=== PATIENT | female | born 1945 | race African-American/Black ===

== ENCOUNTER 2016-07-27 08:50 | Inpatient (IN) | payer MEDICARE, BC ==
[~2016-07-27] VITALS: Ht 160 cm; Wt 97.5 kg
[2016-07-27] MEDS ORDERED: ATEN50TA PO (12:56)
[2016-07-27] MEDS ORDERED: DORZ2SOL EACH EYE (12:56)
[2016-07-27] MEDS ORDERED: SIMV20TA PO (12:56)
[2016-07-27] MEDS ORDERED: LOSA100T PO (12:56)
[2016-07-27] MEDS ORDERED: AMLO10TA2 PO (12:56)
[2016-07-27] MEDS ORDERED: WARF-23 PO (12:56)
[2016-07-27] MEDS ORDERED: WARF-22 PO (12:56)
[2016-07-27] MEDS ORDERED: BRIM0.155 EACH EYE (13:00)
[2016-07-27] MEDS ORDERED: LATA0.002 EACH EYE (13:01)
[2016-07-28] MEDS ORDERED: PROPOFOL 200 MG/20 ML AMP IV ONE (08:40)
[2016-07-28] MEDS ORDERED: ePHEDrine/NS 25 MG/5 ML SYR IV ONE (08:41)
[2016-07-28] MEDS ORDERED: ONDANSETRON HCL 4 MG/2 ML VIAL IV PUSH ONE (08:41)
[2016-07-28] MEDS: CHLORHEXIDINE GLUCONATE 4% SOLN 120 ML BTL TOP SCH (10:15)
[2016-07-28] MEDS ORDERED: ceFAZolin 2 GM PREMIX 50 ML IV SCH (10:15)
[2016-07-28] MEDS ORDERED: LACTATED RINGER'S 1000 ML IV SCH (10:30)
[2016-07-28] MEDS ORDERED: SODIUM CHLORID 0.9% 500 ML IV SCH (10:30)
[2016-07-28] MEDS ORDERED: METOPROLOL TARTRATE 25 MG TAB PO PRN (10:30)
[2016-07-28] MEDS ORDERED: INSULIN HUMAN REGULAR 1,000 UNITS/10 ML VIAL SQ PRN (10:30)
[2016-07-28 10:45] VITALS: BP 170/73; PULSE 50; RESP 18; TEMP 98; O2SAT 96
[2016-07-28] MEDS: VANCOMYCIN 1000 MG/NS 250 ML (for <70 kg) IV SCH ×4 (11:24→11:30)
[2016-07-28 11:37] LABS: PROTHROMBIN TIME - PATIENT 10.7 SEC (9.8-11.6)
[2016-07-28] MEDS ORDERED: fentaNYL CITRATE 250 MCG/5 ML AMP ONE (11:51)
[2016-07-28] MEDS ORDERED: ACETAMINOPHEN 1000 MG/100 ML VIAL IV ONE (11:51)
[2016-07-28] MEDS ORDERED: MIDAZOLAM HCL 2 MG/2 ML VIAL ONE (11:51)
[2016-07-28] MEDS ORDERED: FAMOTIDINE 20 MG/2 ML VIAL ONE (11:51)
[2016-07-28] MEDS ORDERED: APREPITANT 40 MG CAP ONE (11:52)
[2016-07-28] MEDS ORDERED: DEXAMETHASONE SOD PHOS 4 MG/ML VIAL ONE (11:52)
[2016-07-28] MEDS ORDERED: METOCLOPRAMIDE HCL 10 MG/2 ML VIAL ONE (11:52)
[2016-07-28] MEDS ORDERED: GENTAMICIN SULFATE 80 MG/2 ML VIAL ONE (12:59)
--- NOTE | 2016-07-28 14:39 | HHI.PR ---
Immediate Post Op Note Procedure Date: Jul 28, 2016 Pre Op Diagnosis: R Hip OA Post Op Diagnosis: Same Surgeon: Carl Clayton MD Clinical Program Director(s): Izabel العلي PA-C Procedure: R THR Complications: None Estimated blood loss: 400cc Anesthesia: General Drains: None Patient to: PACU Patient Condition: Good Implant/Devices: SEE IMPLANT LOG (if applicable) Date/Time of Procedure: SEE SURGICAL CARE RECORD Carl Clayton MD Jul 28, 2016 14:39
[2016-07-28] MEDS ORDERED: BEDSIDE COMMODE1 MI1 (14:42)
[2016-07-28] MEDS ORDERED: WALKER WHEELS/F1 MIS (14:42)
--- NOTE | 2016-07-28 14:43 | HHI.FF ---
Face to Face Verification Diagnosis: (1) Osteoarthritis of right hip Physical Therapy Gait training Hip: Total hip, Protocol: Right, Posterior hip precautions Canvas Knee Splint: Other (at night while sleeping for 4 weeks) Right LE Weight Bearing: WB as tolerated Left LE Weight Bearing: WB as tolerated Nursing RN Days per Week: 3 x Week(s): 2 Nursing: Dressing changes (clean incision with alcohol and apply dry sterile dressing daily ) Additional Instructions Pt/INR q Monday and , call/text results to Izabel DUARTE [phone] Goal INR 1.8-2 I have seen patient Slime Rowe on 07/28/16. My clinical findings support the need for the requested home health care services because: Deconditioned w/ increased weakness I certify that my clinical findings support that this patient is homebound because: Post-op weakness Carl Clayton MD Jul 28, 2016 14:43
[2016-07-28] MEDS: SODIUM CHLORIDE 0.9% FLUSH 5 ML FLUSH IVF SCH ×2 (14:45→21:00)
[2016-07-28] MEDS ORDERED: ZOLPIDEM TARTRATE 5 MG TAB PO PRN (14:45)
[2016-07-28] MEDS ORDERED: ONDANSETRON HCL 4 MG/2 ML VIAL IVP PRN (14:45)
[2016-07-28] MEDS ORDERED: SODIUM CHLORIDE 0.9% FLUSH 5 ML FLUSH IVF PRN (14:45)
[2016-07-28] MEDS ORDERED: Post-op Orders (for Pharmacy) MISC XX ONE (14:45)
[2016-07-28] MEDS ORDERED: ALUMINUM/MAGNESIUM/SIMETH 30 ML CUP PO PRN (14:45)
[2016-07-28] MEDS ORDERED: GLYCOPYRROLATE 0.2 MG/ML VIAL ONE (14:46)
[2016-07-28] MEDS ORDERED: *morphine SULFATE 8 MG/ML PERIprocedure ONLY ONE ×3 (15:06→15:27)
[2016-07-28] MEDS ORDERED: LACTATED RINGER'S 1000 ML INJ 1,000 ML IV SCH (16:00)
--- NOTE | 2016-07-28 16:09 | RADRPT ---
EXAM DATE/TIME: 07/28/2016 15:25 [place] COMPARISON: No previous studies available for comparison. INDICATIONS : Post operation right hip replacement. MEDICAL HISTORY : None. SURGICAL HISTORY : Prior left hip replacement. ENCOUNTER: Initial ACUITY: 1 day PAIN SCORE: Non-responsive. LOCATION: right hip FINDINGS: A lateral view of the right hip with AP pelvis was obtained. There are postoperative changes of previ ous bilateral hip replacement. Spinal fixation noted in the lumbar spine and across the lumbosacral j unction. Bones are osteopenic. No acute fracture. CONCLUSION: Postoperative changes as above with bilateral hip replacement and spine fixation. Right hip replaceme nt is immediately postoperative with air in the soft tissues. Normal alignment. No complications iden tified. Eddie Leone MD on July 28, 2016 at 16:05 Board Certified Radiologist. This report was verified electronically.
[2016-07-28] MEDS ORDERED: PILL SPLITTER OTHER PRN (16:15)
[2016-07-28] MEDS ORDERED: MORPHINE SULFATE 8 MG/ML INJ IM PRN (16:45)
[2016-07-28] MEDS: BRIMONIDINE TARTRATE 0.15% OPHT SOLN 5 ML BTL EACH EYE SCH (18:00)
[2016-07-28] MEDS: ACETAMINOPHEN/HYDROcodone 325 MG/7.5 MG TAB PO PRN ×2 (18:39→23:47)
[2016-07-28 20:15] VITALS: BP 95/51; PULSE 50; RESP 17; TEMP 96.3; O2SAT 100
--- NOTE | 2016-07-28 20:50 | PD.CONS ---
HPI Service [facility] Hospitalists Consult Requested By Dr Clayton Reason for Consult Medical Management Primary Care Physician Terrance Forman MD Diagnoses: History of Present Illness This is a 71-year-old female with past medical history significant for hypertension, glaucoma, hyperlipidemia, and ablation on chronic ventilation with Coumadin and also arthritis of the right hip was sent to [facility] for elective arthroplasty of the hip. The patient states that she has been having pain in the right hip and has seen Dr. Powers as an outpatient. The patient states that despite trying multiple conservative measures including manipulation, physical therapy and steroid injections the pain got so bad that she was unable to ambulate. The patient is status post right total hip arthroplasty. The patient currently denies chest pain, stress of breath, the patient, headache, dizziness, abdominal pain, diarrhea, nausea vomiting. The state that she had some right hip pain that was moderate to severe, however had some pain medications and the pain is now 2/10. Review of Systems Except as stated in HPI: all other systems reviewed are Neg Past Family Social History Allergies: Coded Allergies: Percocet (Verified Allergy, Severe, HIVES, 07/28/16) Past Medical History 1. Hypertension. 2. Glaucoma. 3. Hyperlipidemia. 4. Atrial fibrillation on chronic anticoagulation with Coumadin Past Surgical History 1. Right knee replacement 2. 2. Status post left hip replacement. 3. Hysterectomy. 4. Spine surgery. Reported Medications 1. Brimonidine ophthalmic dropsone drop to each eye 3 times a day. 2. Losartan 100 mg by mouth daily 3. Warfarin 15 mg by mouth daily. 4. Atenolol 75 mg by mouth daily. 5. Dorzolamide 1 drop to each eye twice a day 6. Amlodipine 10 mg by mouth daily. 7. Simvastatin 20 mg by mouth daily. 8. Latanoprost ophthalmic drops 0.005%one drop to each eye at at bedtime. Active Ordered Medications Current Medications Medications (Trade) Dose Ordered Sig/Gemma Route Start Time Stop Time Status Last Admin (Hibiclens 4% Top Soln) 1 applic ONCE TOP 07/28/16 10:15 07/31/16 10:14 (Norvasc) 10 mg DAILY PO 07/29/16 09:00 (Tenormin) 75 mg DAILY PO 07/29/16 09:00 (Alphagan P 0.15% Opth Soln) 1 drop TID EACH EYE 07/28/16 18:00 (Trusopt 2% Opth Soln) 1 drop BID EACH EYE 07/28/16 21:00 (Xalatan 0.005% Opth Soln) 1 drop HS EACH EYE 07/28/16 21:00 (Cozaar) 100 mg DAILY PO 07/29/16 09:00 Pravastatin Sodium 40 mg 40 mg DAILY PO 07/29/16 09:00 (Lr 1000 ml Inj) 1,000 ml @ 80 mls/hr [id number] IV 07/28/16 16:00 (NS Flush) 2 ml UNSCH PRN IVF 07/28/16 14:45 IV Flush 2 ml 2 ml BID IVF 07/28/16 14:45 (Ancef Inj/NS Inj) 100 ml @ 200 mls/hr Q6H IV 07/28/16 20:00 07/29/16 08:29 (Coumadin) Follow Sliding Scale... DAILY@1600 PO 07/29/16 16:00 (Coumadin Booklet) 1 ONCE ONCE XX 07/29/16 16:00 07/29/16 16:01 ([place] 7.5-325 Mg) 1 tab Q4H PRN PO 07/28/16 14:45 ([place] 7.5-325 Mg) 2 tab Q4H PRN PO 07/28/16 14:45 07/28/16 18:39 (Zofran Inj) 4 mg Q6H PRN IVP 07/28/16 14:45 (Colace) 100 mg BID PO 07/29/16 21:00 (Mag-Al Plus Susp Liq) 30 ml Q6H PRN PO 07/28/16 14:45 (Ambien) 5 mg HS PRN PO 07/28/16 14:45 (Pill Splitter) 1 ea UNSCH PRN OTHER 07/28/16 16:15 (Morphine Inj) 5 mg Q3H PRN IM 07/28/16 16:45 Family History Patient's mother of breast cancer. Youngest daughter from complications due to type 1 diabetes mellitus. Social History She denies smoking. Denies drinking alcohol. The patient is and lives with her . The patient has 2 children that live in [place]. Physical Exam Vital Signs Vital Signs Date Time Temp Pulse Resp B/P Pulse Ox O2 Delivery O2 Flow Rate FiO2 07/28/16 17:33 97.0 50 15 121/58 99 Nasal Cannula 3 07/28/16 17:00 50 17 108/58 99 Nasal Cannula 3 07/28/16 16:30 51 15 119/60 99 Nasal Cannula 3 07/28/16 16:00 52 15 119/57 99 Nasal Cannula 3 07/28/16 15:30 50 16 120/59 97 Nasal Cannula 3 07/28/16 15:15 50 17 125/58 98 Nasal Cannula 3 07/28/16 15:00 49 14 118/82 98 Nasal Cannula 3 07/28/16 14:45 44 14 116/58 98 Nasal Cannula 3 07/28/16 14:34 97.5 57 14 123/60 98 Nasal Cannula 3 07/28/16 10:45 98.0 50 18 170/73 96 Physical Exam GENERAL: This is a well-nourished, well-developed patient, in no apparent distress. SKIN: No rashes, ecchymoses or lesions. Cool and dry. HEAD: Atraumatic. Normocephalic. No temporal or scalp tenderness. EYES: Pupils equal round and reactive. Extraocular motions intact. No scleral icterus. No injection or drainage. ENT: Nose without bleeding, purulent drainage or septal hematoma. Throat without erythema, tonsillar hypertrophy or exudate. Uvula midline. Airway patent. NECK: Trachea midline. No JVD or lymphadenopathy. Supple, nontender, no meningeal signs. CARDIOVASCULAR: Regular rate and rhythm without murmurs, gallops, or rubs. RESPIRATORY: Clear to auscultation. Breath sounds equal bilaterally. No wheezes , rales, or rhonchi. GASTROINTESTINAL: Abdomen soft, non-tender, nondistended. No hepato-splenomegaly , or palpable masses. No guarding. MUSCULOSKELETAL: Extremities without clubbing, cyanosis, or edema. There is tenderness to palpation of the right hip, no effusion or edema noted in any joints. . No calf tenderness. Negative Homans sign bilaterally. NEUROLOGICAL: Awake and alert. Cranial nerves II through XII intact. Motor and sensory grossly within normal limits. Five out of 5 muscle strength in all muscle groups. Normal speech. Laboratory Laboratory Tests Test 07/28/16 07/28/16 10:55 11:00 Blood Type B POSITIVE Antibody Screen NEGATIVE Crossmatch Leukocyte-Reduced Red Blood Cells Blood Bank Comment Prothrombin Time 10.7 Prothromb Time International 1.0 Ratio Imaging Last Impressions Hip and Pelvis X-Ray 07/28/16 0000 Signed Impressions: Service Date/Time: July 15:25 - CONCLUSION: Postoperative changes as above with bilateral hip replacement and spine fixation. Right hip replacement is immediately postoperative with air in the soft tissues. Normal alignment. No complications identified. Eddie Leone MD Assessment and Plan Problem List: (1) Osteoarthritis of right hip ICD Code: M16.11 Status: Acute Plan: Patient is status post right hip arthroplasty. Management as per orthopedic surgery Continue pain control with oral [place] and IM morphine. (2) Hypertension ICD Code: I10 Status: Chronic Plan: Blood pressure seems stable. Continue home antihypertensive medications. Patient currently on valsartan, atenolol, amlodipine. Continue to monitor vital signs (3) Hyperlipidemia ICD Code: E78.5 Status: Chronic Plan: Continue statin. (4) Glaucoma ICD Code: H40.9 Status: Chronic Plan: Seems to be stable. The patient denies any eye pain. Continue brimonidine and latanoprost ophthalmic drops. (5) Atrial fibrillation ICD Code: I48.91 Status: Chronic Plan: Seems to be rate controlled. Place on telemetry. Assessment and Plan DVT prophylaxis: SCDs, no chemoprophylaxis articulation due to recent surgery. Code Status Full code Discussed Condition With Patient and patient's . Problem Qualifiers (1) Osteoarthritis of right hip: Qualified Code: M16.11 - Primary osteoarthritis of right hip (2) Hypertension: Qualified Code: I10 - Essential hypertension (3) Glaucoma: Qualified Code: H40.9 - Glaucoma of both eyes, unspecified glaucoma (4) Atrial fibrillation: Qualified Code: I48.91 - Atrial fibrillation, unspecified type Gareth Maguire MD Jul 28, 2016 20:49
[2016-07-28] MEDS: DORZOLAMIDE 2% OPTH SOLN 200 DROP/10 ML BTLO EACH EYE SCH (20:56)
[2016-07-28] MEDS: LATANOPROST 0.005% OPHT SOLN 2.5 ML BTL EACH EYE SCH (20:56)
[2016-07-28 23:45] VITALS: BP 121/59; PULSE 50; RESP 18; TEMP 96; O2SAT 96
[2016-07-29] VITALS (9 sets, daily range): BP systolic 87–120; BP diastolic 48–57; PULSE 51–66; RESP 16–19; TEMP 95.8–96.8; O2SAT 92–97
[2016-07-29] MEDS: ACETAMINOPHEN/HYDROcodone 325 MG/7.5 MG TAB PO PRN ×3 (05:26→21:21)
[2016-07-29 05:55] LABS: AUTOMATED NEUTROPHIL # 9.7 TH/MM3 (1.8-7.7); BASOPHIL % 0.2 % (0.0-2.0); HEMATOCRIT 31.7 % (35.0-46.0); HEMO FLAGS DIFF FINAL; LYMPH % 7.7 % (9.0-44.0); LYMPHOCYTE # 0.9 TH/MM3 (1.0-4.8); MEAN CELL VOLUME 98.5 FL (80.0-100.0); MEAN CORPUSCULAR HEMOGLOBIN 32.9 PG (27.0-34.0); MEAN CORPUSCULAR HGB CONC 33.4 % (32.0-36.0); MONO % 8.6 % (0.0-8.0); NEUT % 83.5 % (16.0-70.0); PLATELET COUNT 155 TH/MM3 (150-450); RED BLOOD COUNT 3.22 MIL/MM3 (4.00-5.30); RED CELL DISTRIBUTION WIDTH 14.8 % (11.6-17.2); WHITE BLOOD COUNT 11.7 TH/MM3 (4.0-11.0)
[2016-07-29 06:08] LABS: INTERNATIONAL NORMALIZED RATIO 0.9 RATIO; PROTHROMBIN TIME - PATIENT 10.4 SEC (9.8-11.6)
[2016-07-29 06:13] LABS: ANION GAP 9 MEQ/L (5-15); BICARBONATE 24.6 MEQ/L (21.0-32.0); BLOOD UREA NITROGEN 26 MG/DL (7-18); CHLORIDE 104 MEQ/L (98-107); MAGNESIUM 2.1 MG/DL (1.5-2.5); POTASSIUM 4.8 MEQ/L (3.5-5.1); SODIUM (NA) 138 MEQ/L (136-145)
[2016-07-29 06:19] LABS: ALKALINE PHOSPHATASE 165 U/L (45-117); ALT (GPT) 1172 U/L (10-53); AST (GOT) 1353 U/L (15-37)
--- NOTE | 2016-07-29 06:26 | PD.ORT.PN ---
Subjective Subjective Remarks POD#1 R THR C/O post op pain No sob,no chest pain Explained to patient and operative findings Objective Vitals Vital Signs Date Time Temp Pulse Resp B/P Pulse Ox O2 Delivery O2 Flow Rate FiO2 07/29/16 04:00 96.0 57 17 109/54 97 07/28/16 23:45 96.0 50 18 121/59 96 07/28/16 20:15 96.3 50 17 95/51 100 07/28/16 20:00 Room Air 07/28/16 17:33 97.0 50 15 121/58 99 Nasal Cannula 3 07/28/16 17:00 50 17 108/58 99 Nasal Cannula 3 07/28/16 16:30 51 15 119/60 99 Nasal Cannula 3 07/28/16 16:00 52 15 119/57 99 Nasal Cannula 3 07/28/16 15:30 50 16 120/59 97 Nasal Cannula 3 07/28/16 15:15 50 17 125/58 98 Nasal Cannula 3 07/28/16 15:00 49 14 118/82 98 Nasal Cannula 3 07/28/16 14:45 44 14 116/58 98 Nasal Cannula 3 07/28/16 14:34 97.5 57 14 123/60 98 Nasal Cannula 3 07/28/16 10:45 98.0 50 18 170/73 96 I/O 07/28/16 07/28/16 07/28/16 07/29/16 07/29/16 07/29/16 07:00 15:00 23:00 07:00 15:00 23:00 Intake Total 900 ml 570 ml Output Total 400 ml 0 ml Balance 500 ml 570 ml Intake Oral 120 ml IV Total 450 ml Other 900 ml Output Urine Total 0 ml Estimated Blood Loss 400 ml # Voids 0 # Bowel Movements 0 Result Diagram: 07/29/16 0526 Other Results Laboratory Tests Test 07/28/16 07/29/16 11:00 05:26 Prothrombin Time 10.7 SEC 10.4 SEC (9.8-11.6) (9.8-11.6) Prothromb Time International 1.0 RATIO 0.9 RATIO Ratio Objective Remarks N/V intact Neg kenzie's;no calf tenderness No LLD Assessment & Plan Assessment and Plan Ortho stable PT/Rehab Coumadin for DVT prophylaxsis and A Fib D/C home tomorrow;[facility] Nursing,PT Carl Clayton MD Jul 29, 2016 06:26
[2016-07-29] MEDS: SODIUM CHLORIDE 0.9% FLUSH 5 ML FLUSH IVF SCH ×2 (08:14→21:21)
[2016-07-29] MEDS ORDERED: ATENOLOL 25 MG TAB PO SCH (09:00)
[2016-07-29] MEDS ORDERED: PRAVASTATIN SOD 40 MG TAB PO SCH ×2 (09:00→21:00)
[2016-07-29] MEDS ORDERED: LOSARTAN 50 MG TAB PO SCH (09:00)
[2016-07-29] MEDS: DORZOLAMIDE 2% OPTH SOLN 200 DROP/10 ML BTLO EACH EYE SCH ×2 (10:09→21:22)
[2016-07-29] MEDS: BRIMONIDINE TARTRATE 0.15% OPHT SOLN 5 ML BTL EACH EYE SCH ×3 (10:09→18:08)
[2016-07-29] MEDS: CHLORHEXIDINE GLUCONATE 4% SOLN 120 ML BTL TOP SCH (10:15)
--- NOTE | 2016-07-29 12:26 | HHI.PR ---
Subjective Remarks Liver function tests seem to be elevated. Patient denies abdominal pain, nausea, vomiting. Patient is a febrile Creatinine seems to be evaluated as well. Denies chest pain or shortness of breath Pain is controlled Patient states could not urinate last night so a straight catheter was placed Objective Vitals Vital Signs Date Time Temp Pulse Resp B/P Pulse Ox O2 Delivery O2 Flow Rate FiO2 07/29/16 08:50 92 Nasal Cannula 4.00 07/29/16 08:00 96.4 62 19 120/57 92 07/29/16 07:20 Nasal Cannula 07/29/16 04:00 96.0 57 17 109/54 97 07/28/16 23:45 96.0 50 18 121/59 96 07/28/16 20:15 96.3 50 17 95/51 100 07/28/16 20:00 Room Air 07/28/16 17:33 97.0 50 15 121/58 99 Nasal Cannula 3 07/28/16 17:00 50 17 108/58 99 Nasal Cannula 3 07/28/16 16:30 51 15 119/60 99 Nasal Cannula 3 07/28/16 16:00 52 15 119/57 99 Nasal Cannula 3 07/28/16 15:30 50 16 120/59 97 Nasal Cannula 3 07/28/16 15:15 50 17 125/58 98 Nasal Cannula 3 07/28/16 15:00 49 14 118/82 98 Nasal Cannula 3 07/28/16 14:45 44 14 116/58 98 Nasal Cannula 3 07/28/16 14:34 97.5 57 14 123/60 98 Nasal Cannula 3 I/O 07/28/16 07/28/16 07/28/16 07/29/16 07/29/16 07/29/16 07:00 15:00 23:00 07:00 15:00 23:00 Intake Total 900 ml 1003 ml 754 ml Output Total 400 ml 0 ml 700 ml Balance 500 ml 1003 ml 54 ml Intake Oral 120 ml 240 ml IV Total 883 ml 514 ml Other 900 ml Output Urine Total 0 ml 700 ml Estimated Blood Loss 400 ml # Voids 0 # Bowel Movements 0 0 Result Diagram: 07/29/16 0526 07/29/16 0526 Imaging Last Impressions Hip and Pelvis X-Ray 07/28/16 0000 Signed Impressions: Service Date/Time: July 15:25 - CONCLUSION: Postoperative changes as above with bilateral hip replacement and spine fixation. Right hip replacement is immediately postoperative with air in the soft tissues. Normal alignment. No complications identified. Eddie Leone MD Objective Remarks GENERAL: This is a well-nourished, well-developed patient, in no apparent distress. SKIN: No rashes, ecchymoses or lesions. Cool and dry. HEAD: Atraumatic. Normocephalic. No temporal or scalp tenderness. EYES: Pupils equal round and reactive. Extraocular motions intact. No scleral icterus. No injection or drainage. ENT: Nose without bleeding, purulent drainage or septal hematoma. Throat without erythema, tonsillar hypertrophy or exudate. Uvula midline. Airway patent. NECK: Trachea midline. No JVD or lymphadenopathy. Supple, nontender, no meningeal signs. CARDIOVASCULAR: Regular rate and rhythm without murmurs, gallops, or rubs. RESPIRATORY: Clear to auscultation. Breath sounds equal bilaterally. No wheezes , rales, or rhonchi. GASTROINTESTINAL: Abdomen soft, non-tender, nondistended. No hepato-splenomegaly , or palpable masses. No guarding. MUSCULOSKELETAL: Extremities without clubbing, cyanosis, or edema. There is tenderness to palpation of the right hip, no effusion or edema noted in any joints. Dressing looks C/D/I . No calf tenderness. Negative Homans sign bilaterally. NEUROLOGICAL: Awake and alert. Cranial nerves II through XII intact. Motor and sensory grossly within normal limits. Five out of 5 muscle strength in all muscle groups. Normal speech. Procedures sp Right hip arthroplasty Medications and IVs Current Medications Medications (Trade) Dose Ordered Sig/Gemma Route Start Time Stop Time Status Last Admin (Hibiclens 4% Top Soln) 1 applic ONCE TOP 07/28/16 10:15 07/31/16 10:14 (Norvasc) 10 mg DAILY PO 07/29/16 09:00 (Tenormin) 75 mg DAILY PO 07/29/16 09:00 07/29/16 08:14 (Alphagan P 0.15% Opth Soln) 1 drop TID EACH EYE 07/28/16 18:00 07/29/16 13:02 (Trusopt 2% Opth Soln) 1 drop BID EACH EYE 07/28/16 21:00 07/29/16 10:09 (Xalatan 0.005% Opth Soln) 1 drop HS EACH EYE 07/28/16 21:00 (Cozaar) 100 mg DAILY PO 07/29/16 09:00 07/29/16 08:15 Pravastatin Sodium 40 mg 40 mg DAILY PO 07/29/16 09:00 (Lr 1000 ml Inj) 1,000 ml @ 80 mls/hr [id number] IV 07/28/16 16:00 07/29/16 03:37 (NS Flush) 2 ml UNSCH PRN IVF 07/28/16 14:45 (NS Flush) 2 ml BID IVF 07/28/16 14:45 07/28/16 14:45 (Coumadin) Follow Sliding Scale... DAILY@14 PO 07/29/16 14:00 (Coumadin Booklet) 1 ONCE ONCE XX 07/29/16 16:00 07/29/16 16:01 ([place] 7.5-325 Mg) 1 tab Q4H PRN PO 07/28/16 14:45 ([place] 7.5-325 Mg) 2 tab Q4H PRN PO 07/28/16 14:45 07/29/16 10:09 (Zofran Inj) 4 mg Q6H PRN IVP 07/28/16 14:45 (Colace) 100 mg BID PO 07/29/16 21:00 (Mag-Al Plus Susp Liq) 30 ml Q6H PRN PO 07/28/16 14:45 (Ambien) 5 mg HS PRN PO 07/28/16 14:45 (Pill Splitter) 1 ea UNSCH PRN OTHER 07/28/16 16:15 (Morphine Inj) 5 mg Q3H PRN IM 07/28/16 16:45 (Milk Of Magnesia Liq) 30 ml BID PO 07/29/16 10:30 07/29/16 13:02 Sennosides 17.2 mg 17.2 mg HS PO 07/29/16 21:00 (NS 1000 ml Inj) 1,000 ml @ 100 mls/hr Q10H IV 07/29/16 12:45 Urinary Catheter: No A/P Problem List: (1) Osteoarthritis of right hip ICD Code: M16.11 Status: Acute Plan: Patient is status post right hip arthroplasty. Management as per orthopedic surgery Continue pain control with oral [place] and IM morphine. (2) Hypertension ICD Code: I10 Status: Chronic Plan: Hold bp medications due to hypotension last night and today. Continue to monitor vital signs. (3) Hyperlipidemia ICD Code: E78.5 Status: Chronic Plan: Continue statin. (4) Glaucoma ICD Code: H40.9 Status: Chronic Plan: Seems to be stable. The patient denies any eye pain. Continue brimonidine and latanoprost ophthalmic drops. (5) Atrial fibrillation ICD Code: I48.91 Status: Chronic Plan: Seems to be rate controlled. Place on telemetry. INR 0.9 (6) JUNIOR (acute kidney injury) ICD Code: N17.9 Status: Acute Plan: Acute kidney injury could be due to prerenal azotemia versus postobstructive given and the patient had urinary retention. Patient also had episode of hypotension last night as well as this morning. I will place patient on IV normal saline at 100 mL per hour. I will also check a kidney ultrasound. Continue to monitor BUN/creatinine, monitor strict input and output, avoid nephrotoxins. (7) Transaminitis ICD Code: R74.0 Status: Acute Plan: Liver function tests show an AST of 1353, upon review of medical records it was normal in 2005 AST also elevated at 1172. It was also normal left and 6. I will check hepatitis profile and liver ultrasound. Continue to monitor LFT's (8) Hypotension ICD Code: I95.9 Status: Acute Plan: Hypotension last night at 8 pm, BP down to 95/51. Today BP 95/54 - will give 500 ml IV normal saline bolus and place on mateinance fluids at 100 ml/hr Hold antihypertensive medications. (9) Urinary retention ICD Code: R33.9 Status: Acute Plan: sp straight cath. Continue to monitor urine output. If low urine output - check bladder scan. May need Cobb catheter. Assessment and Plan GI prophylaxis: On Coumadin DVT prophylaxis: Eyad stockings, Coumadin resumed by orthopedic surgery. Problem Qualifiers (1) Osteoarthritis of right hip: Qualified Code: M16.11 - Primary osteoarthritis of right hip (2) Hypertension: Qualified Code: I10 - Essential hypertension (3) Glaucoma: Qualified Code: H40.9 - Glaucoma of both eyes, unspecified glaucoma (4) Atrial fibrillation: Qualified Code: I48.91 - Atrial fibrillation, unspecified type (5) Hypotension: Qualified Code: I95.9 - Hypotension, unspecified hypotension type Gareth Maguire MD Jul 29, 2016 12:25
[2016-07-29] MEDS: SODIUM CHLOR 0.9% 1000 ML INJ 1,000 ML IV SCH ×2 (12:45→21:21)
[2016-07-29] MEDS: MAGNESIUM HYDROXIDE SUSP 30 ML CUP PO SCH ×2 (13:02→21:21)
--- NOTE | 2016-07-29 13:27 | MP ---
cc: KHADRA SEAY ALBERT W. M.D. DATE OF SURGERY 07/28/2016 PREOPERATIVE DIAGNOSIS Right hip osteoarthritis. POSTOPERATIVE DIAGNOSIS Right hip osteoarthritis. PROCEDURE Right total hip arthroplasty. SURGEON Brandy Clayton MD ASSESSMENT Izabel العلي PA-C SPECIMEN None ESTIMATED BLOOD LOSS 400 cc COMPLICATIONS None ANESTHESIA General DRAINS None CONDITION Stable PLAN OF ACTIVITY As per orders. PROCEDURE My assistant guest services manager Izabel العلي PA-C was present for the entire surgical case. She was medically necessary for the entire case because of the complexity of the case and to facilitate the performance of the procedure. The FACULTY RESEARCH ASSISTANT was at the back table and was not a skill set for this case to manipulate the instruments e.g. the multiple different types of soft tissue retractors, trial implants and permanent implants. The patient brought into the operating room and had satisfactory general endotracheal anesthesia by the Department of Anesthesia. Because of the patient's large-sized and generalized stiffness, great care was made to protect all pressure points. The right hip and lower extremity was prepped and draped in the usual sterile manner. A posterolateral exposure to the hip was made. Dissection was carried through a considerable amount of adipose tissue down to the underlying fascia. The fascia robbie and gluteus alix was incised in line with the skin incision. The Charnley retractor was placed in the wound to allow better exposure. Great care was made to protect the sciatic nerve throughout of the operative procedure. The short externals were removed as a group. The hip abductors were preserved. Capsulotomy was performed on the hip and the hip was dislocated posteriorly. An oscillating saw was used to create an osteotomy in the neck at the appropriate level. Exposure to the acetabulum was made. The acetabulum and labrum was removed. The capsule was also was removed. Using hemispherical reamers, the acetabulum was prepared using multiple hemispherical reamers up to 51 mm in diameter. The hip 50 mm trial cup was then put in and found to be stable and satisfactory. The attention was now brought to the femur. The patient was found to have significant increased anteversion of approximately 35 degrees. The femur was broached sequentially to a 15 mm broach using the [employer] taper lock system. The trial reduction made off of the broach and then -6 neck was found to be stable and satisfactory. The patient was found to have satisfactory stability, satisfactory limb lengths and satisfactory range of motion. The trial components were removed. A 15 standard offset taper lock Biomet stem was then placed in the patient's anatomic position. A -6 neck, 28 mm ball was then assembled onto the trunnion and the hip was then reduced. Again, the patient was found to have satisfactory stability, satisfactory range of motion, satisfactory limb lengths. The wound was irrigated with copious amounts, the wound itself was dry. The short external rotators were repaired back to the greater trochanteric drill holes using #2 Tycron suture. The fascia robbie and gluteus alix was closed with a #2 Tycron stitch. The subcutaneous tissues were closed in multiple layers using 0 Vicryl and 2-0 Vicryl. The skin was approximated with a running subcuticular 2-0 nylon. Sterile dressings were applied. The patient tolerated the procedure well and arrived in the Recovery Room in stable and satisfactory condition. MD GELA Dia/VALENTINO /2:31 PM /1:13 PM
[2016-07-29] MEDS ORDERED: SODIUM CHLORID 0.9% 500 ML INJ 500 ML IV ONE (14:00)
[2016-07-29] MEDS: WARFARIN SOD 5 MG TAB PO SCH (14:44)
[2016-07-29] MEDS ORDERED: SENNOSIDES 8.6 MG TAB PO SCH (21:00)
[2016-07-29] MEDS: DOCUSATE SODIUM 100 MG CAP PO SCH (21:20)
[2016-07-29] MEDS: LATANOPROST 0.005% OPHT SOLN 2.5 ML BTL EACH EYE SCH (22:07)
[2016-07-30 00:10] VITALS: BP 122/58; PULSE 60; RESP 16; TEMP 98.2; O2SAT 95
[2016-07-30] MEDS: ACETAMINOPHEN/HYDROcodone 325 MG/7.5 MG TAB PO PRN ×3 (02:19→13:09)
[2016-07-30 04:00] VITALS: BP 128/60; PULSE 72; RESP 16; TEMP 98; O2SAT 94
[2016-07-30 06:39] LABS: PROTHROMBIN TIME - PATIENT 10.5 SEC (9.8-11.6)
[2016-07-30 06:48] LABS: AUTOMATED NEUTROPHIL # 9.1 TH/MM3 (1.8-7.7); BASOPHIL % 0.3 % (0.0-2.0); EOSINOPHIL % 0.2 % (0.0-4.0); HEMATOCRIT 26.9 % (35.0-46.0); HEMO FLAGS DIFF FINAL; LYMPH % 8.1 % (9.0-44.0); LYMPHOCYTE # 0.9 TH/MM3 (1.0-4.8); MEAN CELL VOLUME 98.2 FL (80.0-100.0); MEAN CORPUSCULAR HGB CONC 33.6 % (32.0-36.0); MONO % 6.9 % (0.0-8.0); NEUT % 84.5 % (16.0-70.0); PLATELET COUNT 135 TH/MM3 (150-450); RED BLOOD COUNT 2.74 MIL/MM3 (4.00-5.30); WHITE BLOOD COUNT 10.7 TH/MM3 (4.0-11.0)
[2016-07-30 07:04] LABS: ALKALINE PHOSPHATASE 135 U/L (45-117); ALT (GPT) 509 U/L (10-53); ANION GAP 7 MEQ/L (5-15); AST (GOT) 367 U/L (15-37); BICARBONATE 27.6 MEQ/L (21.0-32.0); BLOOD UREA NITROGEN 34 MG/DL (7-18); CHLORIDE 103 MEQ/L (98-107); GLOMERULAR FILTRATION RATE 42 ML/MIN (>89); MAGNESIUM 2.4 MG/DL (1.5-2.5); POTASSIUM 4.1 MEQ/L (3.5-5.1); SODIUM (NA) 138 MEQ/L (136-145); TOTAL BILIRUBIN ADULT 0.4 MG/DL (0.2-1.0)
[2016-07-30 07:51] VITALS: BP 119/58; PULSE 68; RESP 17; TEMP 98; O2SAT 92
[2016-07-30] MEDS: MAGNESIUM HYDROXIDE SUSP 30 ML CUP PO SCH (08:05)
[2016-07-30] MEDS: DOCUSATE SODIUM 100 MG CAP PO SCH (08:05)
--- NOTE | 2016-07-30 08:05 | PD.ORT.PN ---
Subjective Post Op Day #: 3 Subjective Remarks painful. urinated 3 times last night. Objective Vitals Vital Signs Date Time Temp Pulse Resp B/P Pulse Ox O2 Delivery O2 Flow Rate FiO2 07/30/16 04:00 98.0 72 16 128/60 94 07/30/16 00:10 98.2 60 16 122/58 95 07/29/16 20:00 66 07/29/16 20:00 Room Air 07/29/16 20:00 96.8 56 16 110/55 93 07/29/16 18:05 105/52 07/29/16 17:05 54 07/29/16 16:27 97 Nasal Cannula 4.00 07/29/16 16:00 95.8 54 18 87/48 96 07/29/16 12:00 96.0 51 18 95/54 97 07/29/16 08:50 92 Nasal Cannula 4.00 I/O 07/29/16 07/29/16 07/29/16 07/30/16 07/30/16 07/30/16 07:00 15:00 23:00 07:00 15:00 23:00 Intake Total 754 ml 1080 ml 917 ml 853 ml Output Total 700 ml 200 ml Balance 54 ml 880 ml 917 ml 853 ml Intake Oral 240 ml 620 ml 240 ml IV Total 514 ml 460 ml 677 ml 853 ml Output Urine Total 700 ml 200 ml # Voids 3 # Bowel Movements 0 Result Diagram: 07/30/1651807/30/16518 Other Results Laboratory Tests Test 07/30/16 05:19 Prothrombin Time 10.5 SEC (9.8-11.6) Prothromb Time International 1.0 RATIO Ratio Objective Remarks in chair, nad dressing c/d/i N/V intact Neg kenzie's;no calf tenderness No LLD Assessment & Plan Ortho Post Op Day #: 3 Problem List: Assessment and Plan Ortho stable PT/Rehab Coumadin for DVT prophylaxsis and A Fib D/C home;[facility] Nursing,PT when cleared by medical scheduled for ultrasound of liver and kidneys this am Toño Nicholson Jul 30, 2016 08:04
[2016-07-30] MEDS: DORZOLAMIDE 2% OPTH SOLN 200 DROP/10 ML BTLO EACH EYE SCH (08:06)
[2016-07-30] MEDS: LATANOPROST 0.005% OPHT SOLN 2.5 ML BTL EACH EYE SCH (08:06)
--- NOTE | 2016-07-30 10:46 | HHI.PR ---
Subjective Remarks Patient in nad. Denies chest pain, sob, n/v/d/c. Says she feels much better and would like to go home. no abdomional pain, she is eating well no abd pain. No fever or chills. Objective Vitals Vital Signs Date Time Temp Pulse Resp B/P Pulse Ox O2 Delivery O2 Flow Rate FiO2 07/30/16 07:51 98.0 68 17 119/58 92 07/30/16 04:00 98.0 72 16 128/60 94 07/30/16 00:10 98.2 60 16 122/58 95 07/29/16 20:00 66 07/29/16 20:00 Room Air 07/29/16 20:00 96.8 56 16 110/55 93 07/29/16 18:05 105/52 07/29/16 17:05 54 07/29/16 16:27 97 Nasal Cannula 4.00 07/29/16 16:00 95.8 54 18 87/48 96 07/29/16 12:00 96.0 51 18 95/54 97 I/O 07/29/16 07/29/16 07/29/16 07/30/16 07/30/16 07/30/16 07:00 15:00 23:00 07:00 15:00 23:00 Intake Total 754 ml 1080 ml 917 ml 853 ml Output Total 700 ml 200 ml Balance 54 ml 880 ml 917 ml 853 ml Intake Oral 240 ml 620 ml 240 ml IV Total 514 ml 460 ml 677 ml 853 ml Output Urine Total 700 ml 200 ml # Voids 3 # Bowel Movements 0 Result Diagram: 07/30/16 0519 07/30/16 0519 Imaging Last Impressions Abdomen Ultrasound 07/30/16 0000 Signed Impressions: Service Date/Time: Saturday, July 30, 2016 09:46 - CONCLUSION: 1. Echogenic kidneys typical of chronic parenchymal disease. No obstructive uropathy or other acute renal abnormality demonstrated. There is a 17 mm benign-appearing cyst on the right. 2. Abdomen ultrasound otherwise within normal limits. Tank Stevenson MD Hip and Pelvis X-Ray 07/28/16 0000 Signed Impressions: Service Date/Time: July 15:25 - CONCLUSION: Postoperative changes as above with bilateral hip replacement and spine fixation. Right hip replacement is immediately postoperative with air in the soft tissues. Normal alignment. No complications identified. Eddie Leone MD Objective Remarks GENERAL: This is a well-nourished, well-developed patient, in no apparent distress. SKIN: No rashes, ecchymoses or lesions. Cool and dry. HEAD: Atraumatic. Normocephalic. No temporal or scalp tenderness. EYES: Pupils equal round and reactive. Extraocular motions intact. No scleral icterus. No injection or drainage. ENT: Nose without bleeding, purulent drainage or septal hematoma. Throat without erythema, tonsillar hypertrophy or exudate. Uvula midline. Airway patent. NECK: Trachea midline. No JVD or lymphadenopathy. Supple, nontender, no meningeal signs. CARDIOVASCULAR: Regular rate and rhythm without murmurs, gallops, or rubs. RESPIRATORY: Clear to auscultation. Breath sounds equal bilaterally. No wheezes , rales, or rhonchi. GASTROINTESTINAL: Abdomen soft, non-tender, nondistended. No hepato-splenomegaly , or palpable masses. No guarding. MUSCULOSKELETAL: Extremities without clubbing, cyanosis, or edema. There is tenderness to palpation of the right hip, no effusion or edema noted in any joints. Dressing looks C/D/I . No calf tenderness. Negative Homans sign bilaterally. NEUROLOGICAL: Awake and alert. Cranial nerves II through XII intact. Motor and sensory grossly within normal limits. Five out of 5 muscle strength in all muscle groups. Normal speech. Procedures sp Right hip arthroplasty A/P Problem List: (1) Osteoarthritis of right hip ICD Code: M16.11 Status: Acute (2) Hypertension ICD Code: I10 Status: Chronic (3) Hyperlipidemia ICD Code: E78.5 Status: Chronic (4) Glaucoma ICD Code: H40.9 Status: Chronic (5) Atrial fibrillation ICD Code: I48.91 Status: Chronic (6) JUNIOR (acute kidney injury) ICD Code: N17.9 Status: Acute (7) Transaminitis ICD Code: R74.0 Status: Acute (8) Hypotension ICD Code: I95.9 Status: Acute (9) Urinary retention ICD Code: R33.9 Status: Acute Assessment and Plan Osteoarthritis of right hip Patient is status post right hip arthroplasty. Management as per orthopedic surgery Continue pain control with oral [place] and IM morphine. Hypertension Hold bp medications due to noted hypotension Continue to monitor vital signs. Hyperlipidemia. Continue statin. Glaucoma Seems to be stable. The patient denies any eye pain. Continue brimonidine and latanoprost ophthalmic drops. Atrial fibrillation Seems to be rate controlled. Place on telemetry. INR 0.9 JUNIOR (acute kidney injury) Acute kidney injury could be due to prerenal azotemia versus postobstructive given and the patient had urinary retention. Patient also had episode of hypotension last night as well as this morning. I will place patient on IV normal saline at 100 mL per hour. I will also check a kidney ultrasound. Continue to monitor BUN/creatinine, monitor strict input and output, avoid nephrotoxins. Kidney function improving. US kidney reviewed consistent with chronic disease 1. Echogenic kidneys typical of chronic parenchymal disease. No obstructive uropathy or other acute renal abnormality demonstrated. There is a 17 mm benign-appearing cyst on the right. 2. Abdomen ultrasound otherwise within normal limits. Transaminitis Liver function tests show an AST of 1353, upon review of medical records it was normal in 2005 AST also elevated at 1172. It was also normal left and 6. Hepatitis profile pending US abd shows normal liver. Continue to monitor LFT's. LFT Improved. Hypotension Today SBP in mid 90s. Received 500 ml IV normal saline bolus and place on mateinance fluids at 100 ml/hr Hold antihypertensive medications. Urinary retention sp straight cath. Continue to monitor urine output. If low urine output - check bladder scan. May need Cobb catheter. Assessment and Plan GI prophylaxis: On Coumadin DVT prophylaxis: Eyad stockings, Coumadin resumed by orthopedic surgery. Discussed with the patient, nurse, family at bedside. Problem Qualifiers (1) Osteoarthritis of right hip: Qualified Code: M16.11 - Primary osteoarthritis of right hip (2) Hypertension: Qualified Code: I10 - Essential hypertension (3) Glaucoma: Qualified Code: H40.9 - Glaucoma of both eyes, unspecified glaucoma (4) Atrial fibrillation: Qualified Code: I48.91 - Atrial fibrillation, unspecified type (5) Hypotension: Qualified Code: I95.9 - Hypotension, unspecified hypotension type Tatyana Cullen MD Jul 30, 2016 10:46
[2016-07-30 11:26] VITALS: BP 125/56; PULSE 63; RESP 17; TEMP 97.9; O2SAT 91
[2016-07-30] MEDS: WARFARIN SOD 5 MG TAB PO SCH (13:11)
--- NOTE | 2016-07-30 13:20 | RADRPT ---
EXAM DATE/TIME: 07/30/2016 09:46 [facility] COMPARISON: No previous studies available for comparison. INDICATIONS : Elevated lab values. MEDICAL HISTORY : Hypertension. A-Fib. SURGICAL HISTORY : Tonsillectomy. Cholecystectomy. Hysterectomy. Bilateral cataracts. Spinal fusion. Cystoscopy. Left hi p and right knee replacement. ENCOUNTER: Initial ACUITY: 2 days PAIN SCORE: 7/10 LOCATION: Bilateral abdomen. MEASUREMENTS: LIVER: 12.6 cm cm length COMMON DUCT: 8 mm RIGHT KIDNEY: 10.4 x 5.3 x 4.4 cm LEFT KIDNEY: 13.4 x 7.0 x 7.3 cm SPLEEN: 7.6 cm length AORTA: 2.3 cm maximal FINDINGS: LIVER: Normal echotexture without focal lesion or ductal dilatation. There is normal flow velocity and direc tion in the main portal vein. COMMON DUCT: No intraluminal mass or stone visualized. GALLBLADDER: Previous cholecystectomy. PANCREAS: The visualized portions are within normal limits. RIGHT KIDNEY: Small and echogenic. 17 mm cyst of the upper pole. No hydronephrosis. LEFT KIDNEY: No hydronephrosis, stone or mass.Small and echogenic. SPLEEN: No focal lesion. AORTA: Non aneurysmal. IVC: Within normal limits. CONCLUSION: 1. Echogenic kidneys typical of chronic parenchymal disease. No obstructive uropathy or other acute r enal abnormality demonstrated. There is a 17 mm benign-appearing cyst on the right. 2. Abdomen ultrasound otherwise within normal limits. Tank Stevenson MD on July 30, 2016 at 13:15 Board Certified Radiologist. This report was verified electronically.
--- NOTE | 2016-08-22 10:14 | HHI.DS ---
Discharge Summary Admission Date Jul 28, 2016 at 09:25 Discharge Date: Jul 30, 2016 Admitting Diagnosis Right hip osteoarthritis Diagnosis: (1) Osteoarthritis of right hip Diagnosis: Principal Procedures Right total hip arthroplasty Brief History This is a 71 year old female patient who presents with the following history. Patient has right hip pain that has failed all non operative conservative care. She is on Coumadin and therefore unable to take NSAIDs. She has used a walker and cane for assistive ambulation. She has had right hip lateral hip bursa injections and intra-articular steroid injections. She has previously undergone left total hip arthroplasty and did well with the procedure. She states the right hip is impairing her activity and interfering with ADLs. Imaging x-rays of pelvis show satisfactory left total hip arthroplasty, right hip osteoarthritis with joint space narrowing and subchondral sclerosis PE at Discharge in chair, nad dressing c/d/i N/V intact Neg kenzie's;no calf tenderness No LLD Hospital Course Patient underwent satisfactory anaesthesia by the dept of anaesthesia. She was on Coumadin pre-operatively and stopped the medication five days prior to surgery. She was re-started on the Coumadin within 24 hours of surgery to help prevent DVT. She underwent right total hip arthroplasty on date of admission. She did well post-operatively. She was started with full weight bearing ambulation on pod #1. She was also seen and followed by medical during her stay. She progressed well and was discharged home with [facility] PT and nursing on pod #2. Pt Condition on Discharge: Stable Discharge Disposition: Disch w/ Home Health Serv Discharge Instructions Diet Instructions: Coumadin (Warfarin) Diet Activities You Can Perform: Weight Bearing as Carl Bermudez MD Aug 22, 2016 10:14
== END 2016-07-30 15:27 | disposition home or self-care (01) | DRG 470 ==
LOC: HSDI 07-28 09:25 → N06B 07-28 17:38
PROVIDERS: ADMIT Orthopaedic Surgery Orthopaedic Surgery of the Spine; ATTEND Orthopaedic Surgery Orthopaedic Surgery of the Spine
PROC: 0SR90JA Replacement of Right Hip Joint with Synthetic Substitute, Uncemented, Open Approach (ICD-10-PCS; principal; 2016-07-28 12:05)
DX: M16.11 Unilateral primary osteoarthritis, right hip (principal); N17.9 Acute kidney failure, unspecified; I48.91 Unspecified atrial fibrillation; I10 Essential (primary) hypertension; E78.5 Hyperlipidemia, unspecified; R33.9 Retention of urine, unspecified; Z79.01 Long term (current) use of anticoagulants; Z96.642 Presence of left artificial hip joint; Z96.651 Presence of right artificial knee joint; Z98.1 Arthrodesis status; H40.9 Unspecified glaucoma
CPT/HCPCS: 36415; 73501; 76700; 80053; 80074; 83735; 84100; 85025; 85610; 86850; 86900; 86901; 86920; 94150; C1776; J0131; J0690; J1100; J1580; J2250; J2270; J2405; J2765; J3010; J3370; J7030; J7040; J7050; J7120; J8501; L1830

== ENCOUNTER 2018-03-01 12:38 | Inpatient (IN) ==
[2018-03-01] MEDS ORDERED: Chlorhexidine Gluconate 2% 1 Pack (2 Cloths) TOPICAL ONE (13:30)
[2018-03-01] MEDS ORDERED: Sodium Chlor 0.9% Inj 73.07 ML, Ropivacaine 0.5% PF Inj 24.63 ML, Ketorolac Inj 30 MG, ... P-ARTICULR SCH ×5 (13:30)
[2018-03-01] MEDS ORDERED: Metoprolol Tartrate 25 MG Tablet PO ONE (13:30)
[2018-03-01] MEDS ORDERED: Sodium Chlor 0.9% Inj 500 ML IV.CONT ONE (13:30)
[2018-03-01] MEDS ORDERED: Chlorhexidine 4% Topical 120 APPLIC/120 ML Bottle TOPICAL SCH (13:30)
[2018-03-01] MEDS ORDERED: ceFAZolin 2 GM Premix Inj 2 GM/50 ML PIGGYBACK IV.SIG SCH (14:00)
[2018-03-01] MEDS ORDERED: Vancomycin Inj 1,000 MG in Sodium Chlor 0.9% Inj 250 ML IV.SIG SCH (14:00)
[2018-03-01 16:46] LABS: Prothrombin Time 10.3 sec (9.8-11.6)
[2018-03-01] MEDS ORDERED: Neostigmine Inj 5 MG/5 ML Syringe IV.PUSH ONE (17:00)
[2018-03-01] MEDS ORDERED: Succinylcholine Inj 100 MG/5 ML Syringe IV.PUSH ONE (17:00)
[2018-03-01] MEDS ORDERED: Lidocaine PF 1% Inj 5 ML Syringe OTHER ONE (17:00)
[2018-03-01] MEDS ORDERED: Glycopyrrolate Inj 1 MG/5 ML Syringe IV.PUSH ONE (17:00)
[2018-03-01] MEDS ORDERED: Morphine Inj 4 MG/ML Vial IV.PUSH PRN (19:33)
[2018-03-01] MEDS ORDERED: Post-op Orders (for Pharmacy) OTHER STA (19:33)
[2018-03-01] MEDS ORDERED: Bisacodyl 10 MG Supp RECTAL PRN (19:33)
[2018-03-01] MEDS ORDERED: *morphine SULFATE 10 MG/ML PERIprocedure ONLY ONE ×2 (20:05→20:17)
[2018-03-01] MEDS ORDERED: fentaNYL Citrate Inj 100 MCG/2 ML Ampul ONE (20:05)
[2018-03-01] MEDS ORDERED: *Meperidine Inj 25 MG/ML Vial PERIprocedural Use ONLY ONE (20:27)
[2018-03-01] MEDS ORDERED: amLODIPine 10 MG Tablet PO SCH (21:00)
[2018-03-01] MEDS ORDERED: Zolpidem Tartrate 5 MG Tablet PO PRN (21:00)
[2018-03-01] MEDS ORDERED: *morphine SULFATE 4 MG/ML PERIprocedure ONLY ONE (21:07)
[2018-03-01] MEDS: Senna/Docusate Sodium 8.6/50 MG Tablet PO SCH (21:21)
[2018-03-01] MEDS: Dorzolamide 2% Opth Drops 10 ML Bottle EACH EYE SCH (22:07)
[2018-03-02 04:32] LABS: Hematocrit 34.5 % (35.0-46.0); Hemoglobin 11.6 gm/dL (11.6-15.3)
[2018-03-02 04:40] LABS: Prothrombin Time 10.1 sec (9.8-11.6)
[2018-03-02] MEDS: Senna/Docusate Sodium 8.6/50 MG Tablet PO SCH (08:19)
[2018-03-02] MEDS ORDERED: Brimonidine 0.2% Opth Drops 5 ML Bottle EACH EYE SCH (09:00)
[2018-03-02] MEDS: Dorzolamide 2% Opth Drops 10 ML Bottle EACH EYE SCH (11:19)
[2018-03-02] MEDS ORDERED: Latanoprost 0.005% Opth Drops 2.5 ML Bottle EACH EYE SCH (18:00)
== END 2018-03-02 15:11 | disposition home health service (06) ==
LOC: HSDI 12:38 → N06 21:45
PROVIDERS: ADMIT Orthopaedic Surgery Orthopaedic Surgery of the Spine; ATTEND Orthopaedic Surgery Orthopaedic Surgery of the Spine